=== PATIENT | male | born 1995 | race Caucasian/White ===

== ENCOUNTER 2018-03-26 00:43 | Emergency (ER) | payer SELFPAY ==
[~2018-03-26] VITALS: Ht 182.9 cm; Wt 93.3 kg
[2018-03-26] MEDS ORDERED: MECLIZINE CHEWABLE 25 MG TAB ONE (01:10)
--- NOTE | 2018-03-26 01:15 | NUR ---
PT MEDICATED PER MAR. POC DISCUSSED. PT AND FRIEND DENY FURTHER NEEDS AT THIS TIME.
[2018-03-26] MEDS ORDERED: MECLIZINE CHEWABLE 25 MG TAB PO ONE (01:30)
--- NOTE | 2018-03-26 01:48 | NUR ---
BREAK RN: DAVID NARVAEZ, AT BEDSIDE TO DISCUSS ED FINDINGS AND POC.
[2018-03-26 02:23] VITALS: BP 119/74
== END 2018-03-26 02:24 | disposition home or self-care (01) ==
LOC: ED 01:20
DX: M54.2 Cervicalgia (principal); H69.83 Other specified disorders of Eustachian tube, bilateral; R42 Dizziness and giddiness
CPT/HCPCS: 93005; 99283